=== PATIENT | female | born 1950 | race Caucasian/White ===

== ENCOUNTER 2017-06-22 08:31 | Outpatient (CLI) | payer MEDICARE, BC ==
[2017-06-22 09:05] LABS: Estimated GFR-MDRD - POC Greater than 90
--- NOTE | 2017-06-22 10:59 | CT ---
CT ABDOMEN AND PELVIS WITH IV CONTRAST: DATE: 06/22/17. HISTORY: Abdominal pain and weight loss for the past 5-6 years. Lymphocytic colitis. FINDINGS: Lung bases are clear. Post cholecystectomy changes are noted. There are subcentimeter too small to characterize hypodense lesions scattered within each kidney whic h statistically likely represents small renal cysts. The liver, spleen, pancreas, and bilateral adrenal glands demonstrate a normal CT appearance. There is evidence of hysterectomy. Urinary bladder extends inferiorly to the level of the lower port ion of the pubic symphysis. There is a right total hip prosthesis resulting in significant artifact in the pelvis. Opacified bowel has a normal CT appearance. There is no colonic wall thickening appreciated on this exam to suggest colitis. There is a large calcification seen in the subcutaneous soft tissues superior aspect lateral right gl uteal region adjacent to the right iliac bone which may represent [id number] ossification. Vascular calcifications are seen in the abdominal aorta and iliac arteries. Mild degenerative changes are seen in the spine. No lytic or sclerotic osseous lesions are appreciat ed. IMPRESSION: 1. No acute findings are seen in the abdomen or pelvis. 2. Subcentimeter too small to characterize hypodense lesions in each kidney, statistically likely re presents cysts. 3. Postsurgical changes related to hysterectomy and cholecystectomy. 4. Vascular calcifications. 5. No evidence of lymphadenopathy. 6. No colonic wall thickening is present. 7. Suggestion of thickening in the region of the gastric antrum, but this may be related to incomple te distention. However, this would be better evaluated with direct visualization depending on clinic al concern. POS: YURI
== END 2017-06-22 08:32 | disposition home or self-care (01) ==
LOC: SCSCT 08:31
PROVIDERS: ATTEND Internal Medicine Gastroenterology
DX: K52.832 Lymphocytic colitis (principal); R10.84 Generalized abdominal pain; R63.4 Abnormal weight loss; K76.89 Other specified diseases of liver; I70.0 Atherosclerosis of aorta; Z90.710 Acquired absence of both cervix and uterus; Z90.49 Acquired absence of other specified parts of digestive tract
CPT/HCPCS: 74177; 82565

== ENCOUNTER 2017-12-02 08:52 | Outpatient (CLI) | payer MEDICARE, BC ==
--- NOTE | 2017-12-02 09:37 | RAD ---
LEFT KNEE 3 VIEWS: Date: 12/02/17 HISTORY: Left knee pain. FINDINGS/IMPRESSION: No fracture, dislocation, or bony destruction is seen. There is joint space narrowing in the medial t ibiofemoral compartment. No significant osteophytosis is identified. Bones are osteopenic. POS: YURI
--- NOTE | 2017-12-02 09:38 | RAD ---
LEFT HIP 2 VIEWS: Date: 12/02/17 HISTORY: Left hip pain. FINDINGS/IMPRESSION: Mild degenerative changes are seen in the left hip joint. No fracture, dislocation, or bony destructi on is identified. POS: YURI
== END 2017-12-02 08:53 | disposition home or self-care (01) ==
LOC: SCSRAD 08:52
PROVIDERS: ATTEND Family Medicine
DX: M25.552 Pain in left hip (principal); M25.562 Pain in left knee; M16.12 Unilateral primary osteoarthritis, left hip; M25.862 Other specified joint disorders, left knee; M85.862 Other specified disorders of bone density and structure, left lower leg